=== PATIENT | female | born 1980 | race Two or more races ===

== ENCOUNTER 2019-10-05 07:36 | Emergency (ER) | payer OTHER ==
[~2019-10-05] VITALS: Ht 167.6 cm; Wt 68.5 kg
== END 2019-10-05 09:04 | disposition home or self-care (01) ==
LOC: ER 07:36
DX: T16.1XXA Foreign body in right ear, initial encounter (principal); X58.XXXA Exposure to other specified factors, initial encounter; Y93.89 Activity, other specified; Y92.89 Other specified places as the place of occurrence of the external cause; Y99.8 Other external cause status

== ENCOUNTER 2022-05-28 09:19 | Outpatient (CLI) | payer OTHER | END 2022-05-28 09:32 | disposition home or self-care (01) | LOC: MAMO-SONO 09:19 | DX: N64.4 Mastodynia (principal) ==

== ENCOUNTER 2024-10-07 09:52 | Outpatient (CLI) | payer OTHER | END 2024-10-07 10:04 | disposition home or self-care (01) | LOC: RAD 09:52 | PROVIDERS: ATTEND Internal Medicine Rheumatology | DX: M15.0 Primary generalized (osteo)arthritis (principal); M05.79 Rheumatoid arthritis with rheumatoid factor of multiple sites without organ or systems involvement; M20.31 Hallux varus (acquired), right foot; M70.31 Other bursitis of elbow, right elbow ==

== ENCOUNTER 2024-10-11 10:00 | Outpatient (CLI) | payer OTHER | END 2024-10-11 10:09 | disposition home or self-care (01) | LOC: RAD 10:00 | PROVIDERS: ATTEND Orthopaedic Surgery | DX: S52.532A Colles' fracture of left radius, initial encounter for closed fracture (principal) ==

== ENCOUNTER 2024-11-04 07:29 | Outpatient (CLI) | payer OTHER | END 2024-11-04 07:31 | disposition home or self-care (01) | LOC: RAD 07:29 | DX: M25.532 Pain in left wrist (principal); M79.642 Pain in left hand; S61.412A Laceration without foreign body of left hand, initial encounter; X58.XXXA Exposure to other specified factors, initial encounter; Y93.9 Activity, unspecified; Y92.9 Unspecified place or not applicable; Y99.9 Unspecified external cause status ==